=== PATIENT | male | born 1975 | race Caucasian/White ===

== ENCOUNTER → 2024-03-16 17:04 | Outpatient (REF) | payer OTHER, SELFPAY | LOC: RAD 17:04 | PROVIDERS: ATTENDING PHYSICIAN Student in an Organized Health Care Education/Training Program; FAMILY PHYSICIAN Family Medicine | DX: M21.70 Unequal limb length (acquired), unspecified site (principal) | CPT/HCPCS: 77073 ==

== ENCOUNTER → 2024-03-27 06:37 | Outpatient (REF) | payer OTHER, SELFPAY | LOC: EMG 06:37 | PROVIDERS: ATTENDING PHYSICIAN Pain Medicine Interventional Pain Medicine; FAMILY PHYSICIAN Family Medicine | DX: M54.16 Radiculopathy, lumbar region (principal); R20.0 Anesthesia of skin | CPT/HCPCS: 95886; 95910 ==

== ENCOUNTER 2024-04-11 12:46 | Emergency (ER) | payer OTHER, SELFPAY ==
[2024-04-11 12:49] VITALS: BP 130/80
--- NOTE | 2024-04-11 14:13 | ED.GENMED ---
History of Present Illness
General
Chief Complaint: Musculo-Skeletal Complaint
Source: patient
Exam Limitations: none
Time Seen by Provider: 04/11/24 13:40
Nursing documentation reviewed up to this point in time: agreed with
History of Present Illness
History of Present Illness:
Patient is a 4-year-old male who presents ER complaint of left knee pain. He stood up last night from the couch and felt pain in his left knee though he denies any actual injury. He complains more of pain in the anterior knee is able to walk with
slight discomfort. Denies any swelling redness fever chills. He has been followed by Dr. Lou in the past for previous orthopedic issues
Past History
Past History
ED Past Medical History: Asthma and Other (diverticulitis); Negative HTN, Hypercholesterolemia or NIDDM
ED Past Surgical History: Other (sigmoidectomy 11/15/16 for Diverticulitis)
Social History
Tobacco: Former smoker
Alcohol: Occasional
Personal:
Living: with family
Employment: Employed
Review of Systems
Review of Systems
Allergies reviewed?: Yes
All Other Systems: ROS reviewed and negative except as documented in HPI and ROS
Constitutional: Reports no symptoms
Musculoskeletal: Reports other (left knee pain denies swelling/redness )
Skin: Reports no symptoms
Psychiatric: Reports no symptoms
Phy Exam
General Physical Exam
General Presentation: no apparent distress
General age: appears stated age
General Skin: warm and dry
General Habitus: normal
General Mental: alert
General Hydration: appears well hydrated
Neurological Exam
Neurological Exam: alert and oriented x3
Musculoskeletal Exam
Musculoskeletal Exam: other (Normal inspection to left knee wit no effusion no redness no swelling able to flex and extend no laxity neg anterior drawer strong distal pulses )
Skin Exam
Skin Exam: normal color and warm/dry
Psychiatric Exam
Psychiatric Exam: normal mood/affect
Course
Orders/Labs/Results
Orders:
Orders
04/11/24 12:51
Knee, Left 4 or More Views [CR Knee - Left 4 Or More View*] Urgent
Comment:
Reason For Exam: injury
04/11/24 14:12
Knee Immobilizer Left-Treatmen ONCE
Vital Signs
Initial and Last Documented VS:
Initial Vital Signs
Temp Pulse Resp BP Pulse Ox
98 F 89 16 130/80 98
04/11/24 12:49 04/11/24 12:49 04/11/24 12:49 04/11/24 12:49 04/11/24 12:49
Last Documented Vital Signs
Temp Pulse Resp BP Pulse Ox
98 F 89 16 130/80 98
04/11/24 12:49 04/11/24 12:49 04/11/24 12:49 04/11/24 12:49 04/11/24 12:49
*Radiology
Radiology exam reviewed: radiology read reviewed
*Critical Care Note
Total Time (30-74mins, 75-104mins- exclusive of procedures): Not Applicable
ED Attending Note
-
Portions of this chart may have been created with voice recognition software.� Occasional wrong word or��sound alike� substitutions may have occurred due to the inherent limitations of voice recognition software.
Discharge Plan
Departure
Patient Disposition: Home (Routine Discharge)
Date of Disposition: 04/11/24
Time of Disposition: 14:15
Patient with high blood pressure during this ER visit?: Yes
Covid-19: Not Applicable
Discharge Problem:
left knee pain
Instructions: Knee Immobilizer (DC), Knee Sprain (DC), Knee Pain (DC)
Prescriptions:
No Action
escitalopram oxalate 10 MG tablet
10 mg PO DAILY
Celebrex:
1 tab PO DAILY
levofloxacin 500 MG tablet
500 mg PO DAILY Qty: 10 0RF
metronidazole 500 MG tablet
500 mg PO Q8 Qty: 30 0RF
prednisone 20 MG tablet
20 mg PO DAILY Qty: 3 0RF
Referrals:
Leonid Verdugo Jr., [Family Provider] -
Mayank Lou MD [Active] -
Activity Restrictions/Additional Instructions:
As discussed use immobilizer for support ice and elevate for the next 24 to 48 hours you may take ibuprofen. Follow-up with [facility] orthopedics the next several days and return if any worsening of symptoms.
Interventions
Interventions:
*Risk Screen - Suicide Last Done: 04/11/24 13:42
*General Assessment Last Done: 04/11/24 13:42
*Neglect/Abuse Screening Last Done: 04/11/24 13:42
*ED COVID-19 Vaccine History Last Done: 04/11/24 13:42
ED-Musculoskeletal Assessment Last Done: 04/11/24 13:42
Discharge Date and Time
Print Language: LATVIAN
== END 2024-04-11 14:26 | disposition home or self-care (01) ==
LOC: EMR 12:46
PROVIDERS: EMERGENCY PHYSICIAN Student in an Organized Health Care Education/Training Program; FAMILY PHYSICIAN Family Medicine
DX: M25.562 Pain in left knee (principal); J45.909 Unspecified asthma, uncomplicated; Z87.891 Personal history of nicotine dependence
CPT/HCPCS: 99283; 29505; 73564

== ENCOUNTER → 2024-05-27 14:21 | Outpatient (REF) | payer OTHER, SELFPAY | LOC: RAD 14:21 | PROVIDERS: ATTENDING PHYSICIAN Hospitalist; FAMILY PHYSICIAN Family Medicine | DX: M25.649 Stiffness of unspecified hand, not elsewhere classified (principal) | CPT/HCPCS: 73120 ==

== ENCOUNTER → 2024-07-22 06:34 | Day surgery (SDC) | payer OTHER, SELFPAY | LOC: GI 06:34 | PROVIDERS: ATTENDING PHYSICIAN Surgery | DX: Z12.11 Encounter for screening for malignant neoplasm of colon (principal); K57.30 Diverticulosis of large intestine without perforation or abscess without bleeding; K63.5 Polyp of colon; Z86.0100 Personal history of colon polyps, unspecified; Z98.0 Intestinal bypass and anastomosis status | CPT/HCPCS: 45380; 88305 ==

== ENCOUNTER → 2024-10-23 12:15 | Outpatient (REF) | payer OTHER, SELFPAY | LOC: RAD 12:15 | PROVIDERS: ATTENDING PHYSICIAN Hospitalist; FAMILY PHYSICIAN Family Medicine | DX: M54.89 Other dorsalgia (principal) | CPT/HCPCS: 72200 ==

== ENCOUNTER → 2024-12-16 07:17 | Outpatient (REF) | payer OTHER, SELFPAY | LOC: HWRAD 07:17 | PROVIDERS: ATTENDING PHYSICIAN Internal Medicine Endocrinology, Diabetes & Metabolism; FAMILY PHYSICIAN Family Medicine | DX: E05.90 Thyrotoxicosis, unspecified without thyrotoxic crisis or storm (principal); E04.1 Nontoxic single thyroid nodule | CPT/HCPCS: 76536 ==

== ENCOUNTER → 2025-02-05 14:18 | Outpatient (REF) | payer OTHER, SELFPAY | LOC: PAVMRI 14:18 | PROVIDERS: ATTENDING PHYSICIAN Psychiatry & Neurology Neurology; FAMILY PHYSICIAN Family Medicine | DX: F95.1 Chronic motor or vocal tic disorder (principal) | CPT/HCPCS: 70553; A9575 ==